=== PATIENT | female | born 1980 | race African-American/Black ===

== ENCOUNTER 2017-02-18 07:52 | Emergency (ER) | payer OTHER ==
[~2017-02-18 07:52] MED LIST: BLOOD PRESSURE; DARVOCET-N 1001 TAB PO; DICYCLOMINE HCL20 MG PO; FIORICET 50-321 EACH PO; FLEXERIL PO; FLEXERIL10 MG PO; HYDROCODON-ACE1 EAC7 PO; IBUPROFEN PO; IBUPROFEN800 MG PO; LISINOPRIL PO; LORTAB 5/500 TA1 TA1 PO; MEDROL PO; NORVASC PO; SKELAXIN PO; TAMIFLU75 MG PO; TOPROL XL PO; TYLENOL #3 PO; VICODIN 5/1 TAB 5/50 PO; VICODIN 5/500 T1 TAB PO; ZITHROMAX PO
[2017-02-18 08:03] LABS: INFLUENZA A NEG (NEG); INFLUENZA B NEG (NEG)
== END 2017-02-18 08:18 | disposition home or self-care (01) ==
LOC: CFTX 07:52
PROVIDERS: Physician Assistant
DX: J02.9 Acute pharyngitis, unspecified (principal); I10 Essential (primary) hypertension; F17.210 Nicotine dependence, cigarettes, uncomplicated; Z90.710 Acquired absence of both cervix and uterus; Z90.49 Acquired absence of other specified parts of digestive tract
CPT/HCPCS: 87651; 87804; 99283

== ENCOUNTER 2017-07-18 07:32 | Emergency (ER) | payer SELFPAY ==
[~2017-07-18] VITALS: Ht 167.6 cm; Wt 117.9 kg
--- NOTE | ~2017-07-18 | EKG ---
PATIENT: AGUSTINA ANDREA UNIT #: [id number] Ventricular Rate: 85 BPM Atrial Rate: 85 BPM P-R Interval: 188 ms QRS Duration: 92 ms Q-T Interval: 378 ms QTC Calculation(Bezet): 449 ms P Bison: 33 degrees Calculated R Bison: 91 degrees Calculated T Bison: 36 degrees Diagnosis Line: Normal sinus rhythm Diagnosis Line: Rightward axis Diagnosis Line: Borderline ECG Diagnosis Line: Diagnosis Line: Confirmed by GINA KEARNS MD ([id number]) on Diagnosis Line: 07/18/2017 10:54:34 AM INTERPRETING MD: SOM BAEZ
--- NOTE | ~2017-07-18 | CR63 ---
[facility] A Service of [facility] & [facility] RADIOLOGY TEXT RESULTS PATIENT: AGUSTINA ANDREA LOCATION: [facility] : 78 UNIT #: [id number] AGE: [address]: Hayley Hansen SEX: F ORDER DR: [id number] [facility] [address] [place], [place] [address] [id number] MR#: [id number] Acc #: [id number] NAME: AGUSTINA ANDREA : 1980 SEX: F STUDY DATE/TIME: 07/18/2017 8:40 UNIT: [facility] ROOM: STUDY DESCRIPTION: CR Chest 2 View Attending Physician: Hayley Hansen Pa-C Ordering Physician: Ed Doc Jessica Espinoza Primary Care Physician: Magen Peterson M.D. MEDICAL IMAGING REPORT This report is preliminary unless electronic signature is present EXAM PA and lateral chest. Date: 07/18/2017. HISTORY Cough, congestion, earache, shortness of breath and chest pains. Symptoms began 5 days ago. Additional history of hypertension. COMPARISON PA lateral chest radiograph 10/14/2013. FINDINGS No acute airspace disease. Normal heart size. No pleural effusion or pneumothorax. No acute osseous abnormalities. IMPRESSION 1. No acute cardiopulmonary findings. Dictated by... Geri Singh M.D. THIS IS AN ELECTRONICALLY VERIFIED REPORT Geri Singh M.D. at 07/19/2017 1:10 PM LLH/xi TD: 07/18/2017 13:13 JOB #: [id number] MEDICAL IMAGING REPORT Page 1 of 1 COPY
[2017-07-18 08:12] LABS: BASOPHIL# 0.1 X10e3 (0-0.3); BASOPHIL% 0.6 % (0-2.5); EOSINOPHIL# 0.4 X10e3 (0-0.7); EOSINOPHIL% 2.7 % (0.0-7.0); HEMATOCRIT 40.8 % (35.0-45.0); HEMOGLOBIN 13.8 gm/dL (12.0-16.0); LYMPHOCYTE# 2.9 X10e3 (1.0-3.5); LYMPHOCYTE% 22.6 % (17.0-45.0); MEAN CELL VOLUME 84.2 FL (83-96); MEAN CORPUSCULAR HEMOGLOBIN 28.4 PG (28-34); MEAN CORPUSCULAR HGB CONC 33.7 g/dL (30-36); MONOCYTE# 0.8 X10e3 (0-1.0); MONOCYTE% 6.1 % (3.0-12.0); NEUTROPHIL# 8.7 X10e3 (1.5-7.1); PLATELET COUNT 251 X10e3 (140-420); RED BLOOD COUNT 4.85 X10e (3.90-5.30); RED CELL DISTRIBUTION WIDTH 14.3 % (11.0-15.5); WHITE BLOOD COUNT 12.8 X10e3 (4.0-10.5)
[2017-07-18 08:13] LABS: DIFF IND NO
[2017-07-18 08:33] LABS: ALBUMIN SERUM 3.5 g/dL (3.5-5.0); BILIRUBIN, DIRECT 0.1 mg/dL (0.0-0.2); BILIRUBIN,INDIRECT 0.5 mg/dL (0.0-0.9); BILIRUBIN,TOTAL 0.6 mg/dL (0.2-2.0); CALCIUM SERUM 8.8 mg/dL (8.4-10.2); CREATININE SERUM 0.9 mg/dL (0.6-1.4); GLOM FILT RATE Estimated 94.1 mL/min (>60); POTASSIUM 3.7 mmol/L (3.5-5.1); PROTEIN TOTAL SERUM 6.8 g/dL (6.0-8.3)
[2017-07-18 09:59] LABS: POC - TROPONIN <0.05 ng/mL (<=0.05)
== END 2017-07-18 10:27 | disposition home or self-care (01) ==
LOC: CED 07:32
PROVIDERS: Physician Assistant
DX: J40 Bronchitis, not specified as acute or chronic (principal); J06.9 Acute upper respiratory infection, unspecified; R51 Headache; I10 Essential (primary) hypertension; F17.200 Nicotine dependence, unspecified, uncomplicated; Z90.49 Acquired absence of other specified parts of digestive tract; Z90.710 Acquired absence of both cervix and uterus; Z88.8 Allergy status to other drugs, medicaments and biological substances
CPT/HCPCS: 36415; 71020; 80048; 80076; 82553; 84484; 85025; 93005; 94640; 96374; 99284; J2930